=== PATIENT | male | born 1970 | race Caucasian/White ===

== ENCOUNTER 2021-12-19 21:59 | Emergency (ER) | payer SELFPAY ==
[2021-12-20 00:45] LABS: CARBON DIOXIDE,CO2 25.6 mmol/L (21.0-32.0); POTASSIUM,K 3.9 mmol/L (3.5-5.1)
[2021-12-20] MEDS ORDERED: Iopamidol 755 MG/ML 500 ML Multipack Bottle IVPUSH ONE (01:26)
[2021-12-20] MEDS ORDERED: Lactated Ringers 1,000 ML IV ONE ×2 (02:01→03:29)
[2021-12-20] MEDS ORDERED: Morphine 4 MG/ML VIAL IVPUSH ONE (03:14)
[2021-12-20] MEDS ORDERED: Ketorolac 30 MG/ML SDV IVPUSH ONE (03:28)
[2021-12-20] MEDS ORDERED: Morphine 4 MG/ML VIAL ONE (03:34)
[2021-12-20] MEDS ORDERED: Ketorolac 30 MG/ML SDV ONE (03:34)
== END 2021-12-20 05:04 | disposition home or self-care (01) ==
LOC: MW.ED 21:59
DX: N20.0 Calculus of kidney (principal); I10 Essential (primary) hypertension; E11.9 Type 2 diabetes mellitus without complications; Z79.899 Other long term (current) drug therapy; Z79.84 Long term (current) use of oral hypoglycemic drugs; Z20.822 Contact with and (suspected) exposure to COVID-19
CPT/HCPCS: 36415; 71275; 74174; 80053; 81001; 85025; 85610; 85730; 87635; 96361; 96374; 96375; 99284; J1885; J2270; J7120; Q9967; U0002

== ENCOUNTER 2022-06-10 19:25 | Emergency (ER) | payer SELFPAY ==
[2022-06-10 20:08] LABS: CARBON DIOXIDE,CO2 28.8 mmol/L (21.0-32.0); POTASSIUM,K 4.4 mmol/L (3.5-5.1)
[2022-06-10] MEDS ORDERED: Aspirin 81 MG Tab.Chew PO ONE (20:43)
[2022-06-10] MEDS ORDERED: Nitroglycerin/D5W 25 MG/250 ML BOTTLE ONE (20:55)
[2022-06-10] MEDS ORDERED: Nitroglycerin/D5W 25 MG/250 ML BOTTLE IV SCH (21:00)
[2022-06-11] MEDS ORDERED: Lisinopril 10 MG Tab PO ONE (01:23)
[2022-06-11] MEDS ORDERED: metFORMIN 500 MG Tab ONE (01:40)
[2022-06-11] MEDS ORDERED: metFORMIN 500 MG Tab PO ONE (01:46)
[2022-06-11] MEDS ORDERED: metFORMIN 500 MG Tab.ER PO SCH (17:30)
== END 2022-06-11 02:48 ==
LOC: MW.ED 19:25
DX: I21.4 Non-ST elevation (NSTEMI) myocardial infarction (principal); I16.1 Hypertensive emergency; E11.9 Type 2 diabetes mellitus without complications; Z79.84 Long term (current) use of oral hypoglycemic drugs; Z79.899 Other long term (current) drug therapy; Z20.822 Contact with and (suspected) exposure to COVID-19
CPT/HCPCS: 36415; 71045; 80053; 83880; 84484; 85025; 85379; 87635; 93005; 96365; 96366; 99285; A9270; J3490; U0002

== ENCOUNTER 2022-06-19 23:53 | Emergency (ER) | payer BC ==
[2022-06-20] MEDS ORDERED: Lidocaine 5% 700 MG Patch TOP ONE (00:30)
[2022-06-20 00:32] LABS: BLOOD UREA NITROGEN,BUN 20 mg/dL (7.0-18.0); CARBON DIOXIDE,CO2 29.9 mmol/L (21.0-32.0); CHLORIDE,CL 99 mmol/L (98-107); ESTIMATED GFR 66 mL/min (>60); GLUCOSE RANDOM 126 mg/dL (74-106); POTASSIUM,K 3.8 mmol/L (3.5-5.1); SODIUM,NA 138 mmol/L (136-148)
== END 2022-06-20 02:58 | disposition home or self-care (01) ==
LOC: MW.ED 23:53
DX: E11.649 Type 2 diabetes mellitus with hypoglycemia without coma (principal); I10 Essential (primary) hypertension; Z79.82 Long term (current) use of aspirin; Z79.02 Long term (current) use of antithrombotics/antiplatelets; Z79.4 Long term (current) use of insulin; Z79.899 Other long term (current) drug therapy
CPT/HCPCS: 36415; 80053; 82947; 84484; 85025; 93005; 99285; A9270; 93010; 99284